=== PATIENT | female | born 1980 | race Caucasian/White ===

== ENCOUNTER 2021-03-26 06:51 | Emergency (ER) | payer OTHER ==
[~2021-03-26] VITALS: Ht 167.6 cm; Wt 73.9 kg
[2021-03-26] MEDS ORDERED: ZITHROMAX500 MG PO (10:06)
== END 2021-03-26 10:14 | disposition home or self-care (01) ==
LOC: ER 06:51
DX: B34.9 Viral infection, unspecified (principal); Z20.822 Contact with and (suspected) exposure to COVID-19

== ENCOUNTER 2021-04-03 08:29 | Emergency (ER) | payer OTHER ==
[~2021-04-03] VITALS: Ht 167.6 cm; Wt 64.9 kg
[~2021-04-03 08:29] MED LIST: ZITHROMAX500 MG PO
== END 2021-04-03 11:34 | disposition home or self-care (01) ==
LOC: ER 08:29
DX: U07.1 COVID-19 (principal); K52.89 Other specified noninfective gastroenteritis and colitis

== ENCOUNTER 2023-05-10 04:30 | Emergency (ER) | payer OTHER ==
[~2023-05-10] VITALS: Ht 167.6 cm; Wt 73.0 kg
[2023-05-10] MEDS ORDERED: 0.9 % SODIUM CHLORIDE 1,000 ML IV ONE (05:30)
[2023-05-10 06:13] LABS: HEMATOCRIT 33.8 % (36.0-45.00); HEMOGLOBIN 11.6 g/dL (12.0-15.00); MEAN CELL VOLUME 84.9 fL (80.00-100.00); MEAN CORPUSCULAR HEMOGLOBIN 29.1 pg (27.00-32.0); MEAN CORPUSCULAR HGB CONC 34.3 g/dl (32.0-36.0); PLATELET COUNT 230 K/uL (150-450); RED BLOOD COUNT 3.98 M/uL (4.00-6.00); RED CELL DISTRIBUTION WIDTH 13.6 % (11.5-14.5)
[2023-05-10 06:30] LABS: PH,URINE 6.5 (5.0-8.0); URINE APPEARANCE Clear; URINE BILIRRUBIN Negative (NEGATIVE); URINE BLOOD Large; URINE COLOR Yellow; URINE GLUCOSE Negative (NEGATIVE); URINE LEUKOCYTE Moderate; URINE NITRATE Negative; URINE PROTEIN Negative (NEGATIVE); URINE UROBILINOGEN 0.2 E.U./dl
[2023-05-10 06:35] LABS: URINE BACTERIA 3380.5 uL (0.0-1933); URINE EPITHELIAL CELLS 52.5 uL (0.0-38.8); URINE RBC 455.4 uL (0.0-20.8); URINE WBC 139.7 uL (0.0-23.2)
[2023-05-10 07:06] LABS: ALBUMIN 3.1 gm/dL (3.4-5.0); ALKALINE PHOSPHATASE 70 U/L (50-136); ALT/SGPT 14 U/L (12-78); AMYLASE 80 U/L (25-115); ANION GAP 12 (10.0-20.0); AST/SGOT 7 U/L (15-37); BILIRUBIN TOTAL 0.42 mg/dL (0.3-1.2); BILIRUBIN,CONJUGATED < 0.10 mg/dL (0.0-0.2); BILIRUBIN,UNCONJUGATED 0.32 mg/dL (0.0-0.6); BLOOD UREA NITROGEN 17 mg/dL (7-18); BUN CREA RATIO 23 (7.0-25.0); CALCIUM 8.3 mg/dL (8.5-10.1); CARBON DIOXIDE 25 mEq/L (21-32); CHLORIDE 108 mmol/L (98-107); CREATININE SERUM 0.75 mg/dL (0.55-1.02); GFR 83.95; GLOBULINA 3.7 G/DL (2.4-3.5); GLUCOSE FASTING 99 mg/dL (65-100); LIPASE 36 U/L (13-75); OSMOLALITY SERUM 283 MOSM/KG (275-295); POTASSIUM 4.01 mEq/L (3.5-5.1); SODIUM 141 mmol/L (136-145); TOTAL PROTEIN 6.8 gm/dL (6.4-8.2)
[2023-05-10 07:11] LABS: INR 0.98; PARTIAL THROMBOPLASTIN TIME 30.3 SECONDS (22.0-34.0); PROTHROMBIN TIME 10.3 SECONDS (9.0-11.5)
[2023-05-10] MEDS ORDERED: CEFTRIAXONE SODIUM 1,000 MG VIAL IV ONE (10:00)
[2023-05-10] MEDS ORDERED: BACTRIM DS TAB1 EACH PO (10:08)
== END 2023-05-10 10:30 | disposition home or self-care (01) ==
LOC: ER 04:30
PROVIDERS: General Practice
DX: N39.0 Urinary tract infection, site not specified (principal); R10.12 Left upper quadrant pain

== ENCOUNTER 2024-07-15 19:15 | Emergency (ER) | payer OTHER ==
[~2024-07-15] VITALS: Ht 167.6 cm; Wt 64.4 kg
[~2024-07-15 19:15] MED LIST changes: +BACTRIM DS TAB1 EACH PO
[2024-07-15] MEDS ORDERED: ONDANSETRON HCL 2 MG/ML VIAL IV ONE (19:45)
[2024-07-15] MEDS ORDERED: FAMOtidine 10 MG/ML (4ML VIAL) IV ONE (19:45)
[2024-07-15] MEDS ORDERED: 0.9 % SODIUM CHLORIDE 1,000 ML IV ONE (20:00)
[2024-07-15] MEDS ORDERED: HYOSCYAMINE SULFATE 0.125 MG TAB.SUBL SL ONE (20:00)
[2024-07-15] MEDS ORDERED: ONDANSETRON HCL 2 MG/ML VIAL ONE (20:02)
[2024-07-15] MEDS ORDERED: HYOSCYAMINE SULFATE 0.125 MG TAB.SUBL ONE (20:02)
[2024-07-15] MEDS ORDERED: FAMOTIDINE/PF 20 MG/2 ML VIAL ONE (20:02)
[2024-07-15 20:37] LABS: HEMOGLOBIN 12.1 g/dL (12.0-15.00); MEAN CELL VOLUME 84.9 fL (80.00-100.00); MEAN CORPUSCULAR HEMOGLOBIN 28.6 pg (27.00-32.0); MEAN CORPUSCULAR HGB CONC 33.6 g/dl (32.0-36.0); PLATELET COUNT 251 K/uL (150-450); RED BLOOD COUNT 4.24 M/uL (4.00-6.00); RED CELL DISTRIBUTION WIDTH 14.1 % (11.5-14.5)
[2024-07-15] MEDS ORDERED: BUTALB/ACETAMINOPHEN/CAFFEINE 1 TAB TABLET PO ONE ×2 (22:00→22:09)
[2024-07-15] MEDS ORDERED: ZOFRAN8 MG PO (22:08)
[2024-07-15] MEDS ORDERED: PEPCID AC20 MG PO (22:08)
== END 2024-07-15 22:31 | disposition home or self-care (01) ==
LOC: ER 19:16
PROVIDERS: General Practice
DX: A05.9 Bacterial foodborne intoxication, unspecified (principal); R10.9 Unspecified abdominal pain

== ENCOUNTER 2024-09-08 16:28 | Emergency (ER) | payer OTHER ==
[~2024-09-08] VITALS: Ht 167.6 cm; Wt 73.0 kg
[~2024-09-08 16:28] MED LIST changes: +PEPCID AC20 MG PO; +ZOFRAN8 MG PO
[2024-09-08 18:18] LABS: BASO % 0.5 % (0.1-1.2); EOS # 0.16 (0.04-0.54); EOS % 2.1 % (0.7-7.0); HEMOGLOBIN 11.4 g/dL (11.2-15.7); LYMPH # 1.99 (1.18-3.74); LYMPH % 25.6 % (19.3-53.1); MEAN CORPUSCULAR HEMOGLOBIN 28.8 pg (25.6-32.2); MONO # 0.44 (0.24-0.82); MONO % 5.7 % (4.7-12.5); NEUT # 5.13 (1.56-6.13); NEUT % 65.8 % (34.0-71.1); PLATELET COUNT 281 K/uL (163-369); RED BLOOD COUNT 3.96 M/uL (3.93-5.22)
[2024-09-08 18:38] LABS: PH,URINE 5.5 (5.0-8.0); URINE APPEARANCE Clear; URINE BILIRRUBIN Negative (NEGATIVE); URINE BLOOD Negative; URINE COLOR Yellow; URINE GLUCOSE Negative (NEGATIVE); URINE KETONE Trace (NEGATIVE); URINE LEUKOCYTE Negative; URINE NITRATE Negative; URINE PROTEIN Trace (NEGATIVE)
[2024-09-08 18:39] LABS: URINE BACTERIA 664.5 uL (0.0-1933); URINE EPITHELIAL CELLS 19.6 uL (0.0-38.8); URINE RBC 28.5 uL (0.0-20.8); URINE WBC 15.3 uL (0.0-23.2)
[2024-09-08 18:42] LABS: ALBUMIN 3.2 gm/dL (3.4-5.0); BILIRUBIN TOTAL 0.28 mg/dL (0.3-1.2); CALCIUM 8.6 mg/dL (8.5-10.1); CREATININE SERUM 0.74 mg/dL (0.55-1.02); GFR 84.49; GLOBULINA 3.6 G/DL (2.4-3.5); POTASSIUM 4.02 mEq/L (3.5-5.1); TOTAL PROTEIN 6.8 gm/dL (6.4-8.2)
[2024-09-08 18:47] LABS: URINE CAST 0.88 uL (0.0-1.40)
== END 2024-09-08 21:27 | disposition home or self-care (01) ==
LOC: ER 16:28
PROVIDERS: General Practice
DX: R10.2 Pelvic and perineal pain (principal); R42 Dizziness and giddiness; D25.9 Leiomyoma of uterus, unspecified

== ENCOUNTER 2024-11-18 19:09 | Emergency (ER) | payer OTHER ==
[~2024-11-18] VITALS: Ht 167.6 cm; Wt 73.9 kg
[2024-11-18 20:22] LABS: BASO % 0.2 % (0.1-1.2); EOS # 0.09 (0.04-0.54); EOS % 0.6 % (0.7-7.0); LYMPH # 1.34 (1.18-3.74); LYMPH % 9.7 % (19.3-53.1); MEAN PLATELET VOLUME 10.80 fl (9.4-12.4); MONO # 0.93 (0.24-0.82); MONO % 6.7 % (4.7-12.5); NEUT # 11.41 (1.56-6.13); NEUT % 82.4 % (34.0-71.1); RED CELL DISTRIBUTION WIDTH 12.8 % (11.6-14.4)
[2024-11-18 21:18] LABS: COVID-19 AG NEGATIVE (NEGATIVE)
[2024-11-18] MEDS ORDERED: ACETAMINOPHEN500 M1 PO (23:22)
[2024-11-18] MEDS ORDERED: GILTUSS COUGH-118 M1 PO (23:22)
[2024-11-18] MEDS ORDERED: AZITHROMYCIN500 MG PO (23:22)
== END 2024-11-18 23:37 | disposition home or self-care (01) ==
LOC: ER 19:09
PROVIDERS: Preventive Medicine Public Health & General Preventive Medicine
DX: J06.9 Acute upper respiratory infection, unspecified (principal); Z20.822 Contact with and (suspected) exposure to COVID-19

== ENCOUNTER 2024-11-19 16:19 | Emergency (ER) | payer OTHER ==
[~2024-11-19] VITALS: Ht 167.6 cm; Wt 73.9 kg
[~2024-11-19 16:19] MED LIST changes: +ACETAMINOPHEN500 M1 PO; +AZITHROMYCIN500 MG PO; +GILTUSS COUGH-118 M1 PO
[2024-11-19] MEDS ORDERED: PROMETHAZINE HCL 25 MG/ML AMPUL IM STA (20:18)
[2024-11-19] MEDS ORDERED: METOCLOPRAMIDE HCL 5 MG/ML VIAL IM STA (20:18)
== END 2024-11-19 20:44 | disposition home or self-care (01) ==
LOC: ER 16:32
DX: R12 Heartburn (principal); R11.10 Vomiting, unspecified